=== PATIENT | female | born 1995 | race Caucasian/White ===

== ENCOUNTER 2022-01-19 13:41 | Emergency (ER) | payer OTHER ==
[2022-01-19 13:45] VITALS: BP 113/78; PULSE 107; RESP 18; TEMP 98.4; BMI 26.5
[2022-01-19] MEDS ORDERED: SODIUM CHLORIDE 0.9% 500 ML INFUS.BAG IV ONE ×3 (14:35→16:43)
[2022-01-19] MEDS ORDERED: FAMOTIDINE 20 MG/50 ML IVPB 20 MG/50 ML MG IVPB ONE ×2 (14:35→14:54)
[2022-01-19] MEDS ORDERED: ACETAMINOPHEN 1000 MG/100 ML BAG IVPB ONE (14:36)
[2022-01-19] MEDS ORDERED: MAG HYDROX/AL HYDROX/SIMETH 30 ML UNIT-DOSE CUP PO ONE (14:36)
[2022-01-19] MEDS ORDERED: METOCLOPRAMIDE HCL INJECTION 10 MG/2 ML VIAL IVPUSH ONE (14:37)
[2022-01-19] MEDS ORDERED: METOCLOPRAMIDE HCL INJECTION 10 MG/2 ML VIAL ONE (14:53)
[2022-01-19] MEDS ORDERED: MAG HYDROX/AL HYDROX/SIMETH 30 ML UNIT-DOSE CUP ONE (14:54)
[2022-01-19] MEDS ORDERED: ACETAMINOPHEN INJECTION 100 ML IVPB ONE (14:54)
[2022-01-19 15:10] LABS: BASO % 1.1 % (0-2.0); EOS % 0.2 % (0-4.5); HEMATOCRIT 43.5 % (32.4-45.2); HEMOGLOBIN 14.8 GM/dL (10.7-15.3); LYMPH % 20.8 % (8-40); MCH 30.3 pg (25.7-33.7); MEAN PLT VOLUME 8.8 fl (7.5-11.1); MONO % 6.9 % (3.8-10.2); PLATELET COUNT 315 10^3/uL (134-434); RBC 4.89 M/mm3 (3.60-5.2); RDW 14.6 % (11.6-15.6); WHITE BLOOD COUNT 7.7 K/mm3 (4.0-10.0)
[2022-01-19 15:15] LABS: EPI CELLS 29 /uL (0-25.1); HYALINE CASTS 2 /uL (0-3.1); PH,URINE 6.5 (5.0-8.0); URINE APPEARANCE CLEAR; URINE BACTERIA 255 /uL (0-1359); URINE BILIRUBIN 1+ (NEGATIVE); URINE COLOR DK YELLOW; URINE GLUCOSE (UA) NEGATIVE (NEGATIVE); URINE KETONE 4+ (NEGATIVE); URINE LEUK ESTERASE TRACE (NEGATIVE); URINE NITRITE NEGATIVE (NEGATIVE); URINE PROTEIN 2+ (NEGATIVE); URINE RBC 112 /uL (0-23.9); URINE WBC 15 /uL (0-25.8)
[2022-01-19 15:25] LABS: HCG,QUALITATIVE URINE Negative
[2022-01-19 15:31] LABS: CALCIUM 9.8 mg/dL (8.5-10.1)
[2022-01-19 15:32] LABS: ALBUMIN 4.7 g/dl (3.4-5.0); BLOOD UREA NITROGEN 8.7 mg/dL (7-18)
[2022-01-19 15:34] LABS: CREATININE 0.7 mg/dL (0.55-1.3)
[2022-01-19 15:36] LABS: BILIRUBIN,TOTAL 1.1 mg/dL (0.2-1); TOT PROT 8.1 g/dl (6.4-8.2)
[2022-01-19 17:51] LABS: EPI CELLS 4 /uL (0-25.1); HYALINE CASTS 1 /uL (0-3.1); PH,URINE 6.5 (5.0-8.0); URINE APPEARANCE CLEAR; URINE BACTERIA 41 /uL (0-1359); URINE BILIRUBIN NEGATIVE (NEGATIVE); URINE COLOR YELLOW; URINE GLUCOSE (UA) NEGATIVE (NEGATIVE); URINE KETONE 3+ (NEGATIVE); URINE LEUK ESTERASE NEGATIVE (NEGATIVE); URINE NITRITE NEGATIVE (NEGATIVE); URINE PROTEIN NEGATIVE (NEGATIVE); URINE RBC 21 /uL (0-23.9); URINE WBC 2 /uL (0-25.8)
== END 2022-01-19 19:34 | disposition home or self-care (01) ==
LOC: JER 13:41
PROC: 3E0333Z Introduction of Anti-inflammatory into Peripheral Vein, Percutaneous Approach (ICD-10-PCS; principal; 2022-01-19)
PROC: 3E033GC Introduction of Other Therapeutic Substance into Peripheral Vein, Percutaneous Approach (ICD-10-PCS; 2022-01-19)
PROC: 3E033GC Introduction of Other Therapeutic Substance into Peripheral Vein, Percutaneous Approach (ICD-10-PCS; 2022-01-19)
DX: R10.30 Lower abdominal pain, unspecified (principal)
CPT/HCPCS: 36415; 76830-TC; 80053; 81003; 83690; 84703; 85025; 87086; 93005; 93010; 99285-25

== ENCOUNTER 2022-01-20 21:08 | Emergency (ER) | payer OTHER ==
[2022-01-20 21:15] VITALS: BP 124/88; PULSE 91; RESP 19; BMI 26.5
[2022-01-20 21:19] VITALS: TEMP 98.3
[2022-01-20] MEDS ORDERED: ACETAMINOPHEN 325 MG TABLET (FP) PO ONE (22:36)
[2022-01-20] MEDS ORDERED: ACETAMINOPHEN 325 MG TABLET (FP) ONE (22:40)
== END 2022-01-21 00:37 | disposition home or self-care (01) ==
LOC: JER 21:08
DX: R51.9 Headache, unspecified (principal); R07.9 Chest pain, unspecified; M54.9 Dorsalgia, unspecified
CPT/HCPCS: 0241U-QW; 93005; 93010; 99284-25

== ENCOUNTER 2023-05-06 17:43 | Emergency (ER) | payer OTHER ==
[2023-05-06 17:55] VITALS: BMI 26.5
[2023-05-06] MEDS ORDERED: FOLIC ACID INJECTION - 1 MG, THIAMINE HCL 100 MG, MULTIVIT INJECTION ADULT 10 ML in SOD... IVPB ONE (18:48)
[2023-05-06 20:02] LABS: VENOUS BASE EXCESS -2.4 mmol/L (-2-2); VENOUS O2 SATURATION 79.6 % (70-80); VENOUS PCO2 38.6 mmHg (38-52); VENOUS PH 7.38 (7.310-7.410)
[2023-05-06 20:05] LABS: BASO % 2.1 % (0-2.0); EOS % 0.4 % (0-4.5); HEMATOCRIT 45.8 % (32.4-45.2); HEMOGLOBIN 15.1 GM/dL (10.7-15.3); LYMPH % 36.4 % (8-40); MCH 29.5 pg (25.7-33.7); MEAN CELL VOLUME 89.3 fl (80-96); MEAN PLT VOLUME 8.3 fl (7.5-11.1); MONO % 3.3 % (3.8-10.2); NEUT % 57.8 % (42.8-82.8); PLATELET COUNT 429 10^3/uL (134-434); RBC 5.13 M/mm3 (3.60-5.2); RDW 15.2 % (11.6-15.6); WHITE BLOOD COUNT 10.1 K/mm3 (4.0-10.0)
[2023-05-06 20:15] LABS: METHADONE, UR NEGATIVE (NEGATIVE); PHENCYCLIDINE,URINE NEGATIVE (NEGATIVE)
[2023-05-06 20:16] LABS: COCAINE, UR NEGATIVE (NEGATIVE); PH,URINE 6.5 (5.0-8.0); URINE APPEARANCE CLEAR; URINE BARBITURATES NEGATIVE (NEGATIVE); URINE BILIRUBIN NEGATIVE (NEGATIVE); URINE COLOR YELLOW; URINE GLUCOSE (UA) NEGATIVE (NEGATIVE); URINE KETONE 1+ (NEGATIVE); URINE LEUK ESTERASE NEGATIVE (NEGATIVE); URINE NITRITE NEGATIVE (NEGATIVE); URINE PROTEIN NEGATIVE (NEGATIVE); URINE UROBILINOGEN 0.2 mg/dL (0.2-1.0)
[2023-05-06 20:25] LABS: POTASSIUM 4.1 mmol/L (3.5-5.1)
[2023-05-06 20:26] LABS: OPIATES, URI NEGATIVE (NEGATIVE); URINE AMPHETAMINES NEGATIVE (NEGATIVE); URINE BENZODIAZEPINES NEGATIVE (NEGATIVE)
[2023-05-06 20:27] LABS: ALBUMIN 4.4 g/dl (3.4-5.0); BLOOD UREA NITROGEN 8.8 mg/dL (7-18); CALCIUM 9.6 mg/dL (8.5-10.1); MAGNESIUM 2.2 mg/dL (1.8-2.4)
[2023-05-06 20:30] LABS: CREATININE 0.6 mg/dL (0.55-1.3)
[2023-05-06 20:32] LABS: BILIRUBIN,TOTAL 0.4 mg/dL (0.2-1)
[2023-05-07 07:06] VITALS: TEMP 98.7
[2023-05-07 11:56] VITALS: BP 124/84; PULSE 100; RESP 16
== END 2023-05-07 11:55 | disposition home or self-care (01) ==
LOC: JER 17:43
PROC: 3E033GC Introduction of Other Therapeutic Substance into Peripheral Vein, Percutaneous Approach (ICD-10-PCS; principal; 2023-05-06)
PROC: 3E033GC Introduction of Other Therapeutic Substance into Peripheral Vein, Percutaneous Approach (ICD-10-PCS; 2023-05-06)
PROC: 3E033GC Introduction of Other Therapeutic Substance into Peripheral Vein, Percutaneous Approach (ICD-10-PCS; 2023-05-06)
PROC: 3E033GC Introduction of Other Therapeutic Substance into Peripheral Vein, Percutaneous Approach (ICD-10-PCS; 2023-05-06)
PROC: 3E033GC Introduction of Other Therapeutic Substance into Peripheral Vein, Percutaneous Approach (ICD-10-PCS; 2023-05-06)
PROC: 3E033GC Introduction of Other Therapeutic Substance into Peripheral Vein, Percutaneous Approach (ICD-10-PCS; 2023-05-06)
PROC: 3E033GC Introduction of Other Therapeutic Substance into Peripheral Vein, Percutaneous Approach (ICD-10-PCS; 2023-05-06)
PROC: 3E033GC Introduction of Other Therapeutic Substance into Peripheral Vein, Percutaneous Approach (ICD-10-PCS; 2023-05-06)
DX: F10.920 Alcohol use, unspecified with intoxication, uncomplicated (principal); Y90.8 Blood alcohol level of 240 mg/100 ml or more; Z20.822 Contact with and (suspected) exposure to COVID-19
CPT/HCPCS: 0241U-QW; 36415; 80053; 80307; 81003; 82803; 83735; 84443; 84703; 85025; 87086; 87186; 93005; 93010; 99284-25

== ENCOUNTER 2023-05-08 12:42 | Inpatient (IN) | payer OTHER ==
[2023-05-08 13:19] VITALS: BMI 24.0
[2023-05-08] MEDS ORDERED: NALOXONE HCL 0.4 MG/ML VIAL IM PRN (13:57)
[2023-05-08] MEDS ORDERED: IBUPROFEN 600 MG TABLET (FP) PO PRN (13:57)
[2023-05-08] MEDS ORDERED: POLYETHYLENE GLYCOL (HEALTHYLAX) 3350 17 GM PACKET PO PRN (13:57)
[2023-05-08] MEDS ORDERED: hydrOXYzine PAMOATE 25 MG CAPSULE (FP) PO PRN (13:57)
[2023-05-08] MEDS ORDERED: NALOXONE HCL (KLOXXADO) 8 MG SPRAY NS PRN (13:57)
[2023-05-08] MEDS ORDERED: MAG HYDROX/AL HYDROX/SIMETH 30 ML UNIT-DOSE CUP PO PRN (13:57)
[2023-05-08] MEDS ORDERED: IBUPROFEN 400 MG TABLET (FP) PO PRN (13:57)
[2023-05-08] MEDS ORDERED: chlordiazePOXIDE HCL 25 MG CAPSULE PO PRN (13:57)
[2023-05-08] MEDS ORDERED: MAGNESIUM HYDROX 2400MG/30ML ORAL SUSPENSION 30 ML CUP PO PRN (13:57)
[2023-05-08] MEDS ORDERED: BENZONATATE 200 MG CAPSULE PO PRN (13:57)
[2023-05-08] MEDS ORDERED: BISMUTH SUBSALICYLATE 262 MG/15 ML BTL PO PRN (13:57)
[2023-05-08] MEDS ORDERED: guaiFENesin 600 MG TABLET.ER (FP) PO PRN (13:57)
[2023-05-08] MEDS ORDERED: LOPERAMIDE HCL 2 MG CAPSULE PO PRN (13:57)
[2023-05-08] MEDS ORDERED: BENZOCAINE/MENTHOL (CHLORASEPTIC ) LOZENGE MM PRN (13:57)
[2023-05-08] MEDS ORDERED: METHOCARBAMOL 500 MG TABLET PO PRN (13:57)
[2023-05-08] MEDS ORDERED: ACETAMINOPHEN 325 MG TABLET (FP) PO PRN (13:57)
[2023-05-08] MEDS ORDERED: DICYCLOMINE HCL 10 MG CAPSULE PO PRN (13:57)
[2023-05-08] MEDS ORDERED: ONDANSETRON *ODT* 4 MG TABLET SL PRN (13:57)
[2023-05-08] MEDS ORDERED: NICOTINE 7 MG/24 HOURS TOPICAL PATCH TD ONE (14:24)
[2023-05-08] MEDS ORDERED: PRENATAL VITAMINS W/ FOLIC ACID TABLET (FP) PO ONE (14:24)
[2023-05-08] MEDS: PRENATAL VITAMINS W/ FOLIC ACID TABLET (FP) PO SCH (14:35)
[2023-05-08] MEDS: NICOTINE 7 MG/24 HOURS TOPICAL PATCH TD SCH (14:35)
[2023-05-08] MEDS: chlordiazePOXIDE HCL 25 MG CAPSULE PO SCH ×2 (17:04→22:31)
[2023-05-08] MEDS: MELATONIN 5 MG TABLETS PO SCH (22:31)
[2023-05-08] MEDS: THIAMINE HCL 100 MG TABLET (FP) PO SCH (22:31)
[2023-05-08] MEDS: SUVOREXANT 5 MG TABLET PO PRN (22:34)
[2023-05-09] MEDS: chlordiazePOXIDE HCL 25 MG CAPSULE PO SCH ×4 (05:36→22:34)
[2023-05-09 09:52] LABS: HEMATOCRIT 41.3 % (32.4-45.2); HEMOGLOBIN 13.8 GM/dL (10.7-15.3); MCH 30.1 pg (25.7-33.7); MCHC 33.5 g/dl (32.0-36.0); MEAN CELL VOLUME 89.8 fl (80-96); MEAN PLT VOLUME 9.4 fl (7.5-11.1); PLATELET COUNT 271 10^3/uL (134-434); RDW 14.5 % (11.6-15.6); WHITE BLOOD COUNT 5.2 K/mm3 (4.0-10.0)
[2023-05-09] MEDS: PRENATAL VITAMINS W/ FOLIC ACID TABLET (FP) PO SCH (10:19)
[2023-05-09] MEDS: NICOTINE 7 MG/24 HOURS TOPICAL PATCH TD SCH (10:19)
[2023-05-09 11:20] LABS: CHLORIDE 105 mmol/L (98-107); POTASSIUM 3.7 mmol/L (3.5-5.1); SODIUM 137 mmol/L (136-145)
[2023-05-09 11:43] LABS: CALCIUM 9.3 mg/dL (8.5-10.1)
[2023-05-09 11:44] LABS: ALBUMIN 3.8 g/dl (3.4-5.0); BLOOD UREA NITROGEN 7.4 mg/dL (7-18); GLUCOSE,RANDOM 89 mg/dL (74-106)
[2023-05-09 11:45] LABS: ANION GAP 9 mmol/L (4-13); CO2 23 mmol/L (21-32)
[2023-05-09 11:46] LABS: CREATININE 0.6 mg/dL (0.55-1.3)
[2023-05-09 11:47] LABS: SGOT/AST 37 U/L (15-37); SGPT/ALT 36 U/L (13-61)
[2023-05-09 11:48] LABS: TOT PROT 6.9 g/dl (6.4-8.2)
[2023-05-09 11:49] LABS: ALK PHOS 93 U/L (45-117); BILIRUBIN,TOTAL 0.9 mg/dL (0.2-1)
[2023-05-09] MEDS: SUVOREXANT 5 MG TABLET PO PRN (22:33)
[2023-05-09] MEDS: MELATONIN 5 MG TABLETS PO SCH (22:34)
[2023-05-09] MEDS: THIAMINE HCL 100 MG TABLET (FP) PO SCH (22:35)
[2023-05-10] MEDS: chlordiazePOXIDE HCL 25 MG CAPSULE PO SCH ×4 (05:45→22:07)
[2023-05-10] MEDS: NICOTINE 7 MG/24 HOURS TOPICAL PATCH TD SCH (10:38)
[2023-05-10] MEDS: PRENATAL VITAMINS W/ FOLIC ACID TABLET (FP) PO SCH (10:38)
[2023-05-10] MEDS: MELATONIN 5 MG TABLETS PO SCH (22:06)
[2023-05-10] MEDS: THIAMINE HCL 100 MG TABLET (FP) PO SCH (22:07)
[2023-05-10] MEDS: SUVOREXANT 5 MG TABLET PO PRN (22:07)
[2023-05-11] MEDS ORDERED: chlordiazePOXIDE HCL 10 MG CAPSULE PO PRN
[2023-05-11] MEDS: chlordiazePOXIDE HCL 10 MG CAPSULE PO SCH ×4 (05:48→22:36)
[2023-05-11] MEDS: PRENATAL VITAMINS W/ FOLIC ACID TABLET (FP) PO SCH (10:02)
[2023-05-11] MEDS: NICOTINE 7 MG/24 HOURS TOPICAL PATCH TD SCH (10:02)
[2023-05-11] MEDS: MELATONIN 5 MG TABLETS PO SCH (22:35)
[2023-05-11] MEDS: THIAMINE HCL 100 MG TABLET (FP) PO SCH (22:35)
[2023-05-11] MEDS: SUVOREXANT 5 MG TABLET PO PRN (22:36)
[2023-05-12] MEDS: chlordiazePOXIDE HCL 10 MG CAPSULE PO SCH ×2 (05:45→17:42)
[2023-05-12] MEDS: PRENATAL VITAMINS W/ FOLIC ACID TABLET (FP) PO SCH (09:58)
[2023-05-12] MEDS: NICOTINE 7 MG/24 HOURS TOPICAL PATCH TD SCH (09:58)
[2023-05-12] MEDS: MELATONIN 5 MG TABLETS PO SCH (22:17)
[2023-05-12] MEDS: THIAMINE HCL 100 MG TABLET (FP) PO SCH (22:17)
[2023-05-12] MEDS: SUVOREXANT 5 MG TABLET PO PRN (22:17)
[2023-05-13] MEDS ORDERED: chlordiazePOXIDE HCL 10 MG CAPSULE PO ONE (05:00)
[2023-05-13] MEDS: PRENATAL VITAMINS W/ FOLIC ACID TABLET (FP) PO SCH (09:44)
[2023-05-13] MEDS: NICOTINE 7 MG/24 HOURS TOPICAL PATCH TD SCH (09:48)
[2023-05-13 16:09] VITALS: BP 103/66; PULSE 86; RESP 18; TEMP 97.5
== END 2023-05-13 03:41 | disposition home or self-care (01) | DRG 775 ==
LOC: YASAS 12:42 → Y6N 14:08
PROVIDERS: ADMIT Allergy & Immunology; ATTEND Surgery
PROC: HZ2ZZZZ Detoxification Services for Substance Abuse Treatment (ICD-10-PCS; principal; 2023-05-08)
DX: F10.230 Alcohol dependence with withdrawal, uncomplicated (principal); F17.210 Nicotine dependence, cigarettes, uncomplicated; F10.282 Alcohol dependence with alcohol-induced sleep disorder; F10.280 Alcohol dependence with alcohol-induced anxiety disorder; F60.3 Borderline personality disorder; F41.9 Anxiety disorder, unspecified; F32.A Depression, unspecified; Z20.822 Contact with and (suspected) exposure to COVID-19; Z62.810 Personal history of physical and sexual abuse in childhood; Z28.310 Unvaccinated for COVID-19; Z28.9 Immunization not carried out for unspecified reason
CPT/HCPCS: 36415; 80053; 80307; 81025; 85027; 86780; 87635; 87811; 93005; 93010